=== PATIENT | male | born 1995 | race Caucasian/White ===

== ENCOUNTER 2016-07-03 15:44 | Emergency (ER) | payer MEDICAID | END 2016-07-03 17:05 | disposition home or self-care (01) | LOC: ER 15:44 | DX: S93.402A Sprain of unspecified ligament of left ankle, initial encounter (principal); X50.0XXA Overexertion from strenuous movement or load, initial encounter; Y93.67 Activity, basketball; Y92.328 Other athletic field as the place of occurrence of the external cause ==

== ENCOUNTER 2016-07-12 17:30 | Emergency (ER) | payer MEDICAID | END 2016-07-12 18:10 | disposition home or self-care (01) | LOC: ER 17:30 | DX: S93.492A Sprain of other ligament of left ankle, initial encounter (principal); S90.02XA Contusion of left ankle, initial encounter; X50.1XXA Overexertion from prolonged static or awkward postures, initial encounter; Y93.67 Activity, basketball; Y92.310 Basketball court as the place of occurrence of the external cause ==